=== PATIENT | female | born 1985 | race Caucasian/White ===

== ENCOUNTER 2016-09-11 07:17 | Inpatient (IN) | payer BC ==
[2016-09-11] VITALS (19 sets, daily range): BP systolic 95–142; BP diastolic 59–83
[~2016-09-11] VITALS: Ht 160 cm; Wt 80.9 kg
[~2016-09-11 07:17] MED LIST: Children's Advil PO; Percocet 5/325,Endoc PO; ~No Medications
[2016-09-11 08:39] LABS: EOSINOPHIL (%) 0 % (0-5); HEMATOCRIT 33.1 % (36.0-46.0); IMMATURE GRANULOCYTE (%) 0.5 % (0.0-0.7); IMMATURE GRANULOCYTE COUNT 0.1 K/uL; INSTRUMENT ABS NEUTROPHIL CT 11.9 K/uL; MCH 29.3 PG (29.0-34.0); MCHC 33.5 G/DL (30.0-36.0); MCV 87.3 FL (83-99); MEAN PLAT.VOLUME 10.8 uM^3 (9.5-12.4); MONOCYTE (%) 2.2 % (3-12); MONOCYTE COUNT 0.3 K/uL (0-0.8); NEUTROPHIL (%) 89.6 % (45-76); NEUTROPHIL COUNT 11.9 K/uL (1.8-6.4); PLATELET COUNT 212 K/uL (156-360); RBC DIS.WIDTH-CV 13.7 % (11.8-14.6); RBC DIS.WIDTH-SD 43.2 % (39-53); RED BLOOD COUNT 3.79 M/uL (3.80-5.20); WHITE BLOOD COUNT 13.3 K/uL (4.1-10.2)
[2016-09-11] MEDS ORDERED: PERCOCET 5/31 TABLET PO (15:10)
[2016-09-11] MEDS ORDERED: MOTRIN800 MG PO (15:10)
[2016-09-11] MEDS ORDERED: LEVO-T25 MCG PO (18:11)
[2016-09-11] MEDS ORDERED: PRENATAL TABLE1 EAC3 PO (18:12)
[2016-09-12 07:25] VITALS: BP 99/58
[2016-09-12 15:40] VITALS: BP 126/66
== END 2016-09-12 18:29 | disposition home or self-care (01) | DRG 775 ==
LOC: LDRP-OP 07:17 → 2WEST 07:18 → LDRP-OP 10-16 19:45
PROVIDERS: Midwife
PROC: 00HU33Z Insertion of Infusion Device into Spinal Canal, Percutaneous Approach (ICD-10-PCS; principal; 2016-09-11)
PROC: 3E0R3CZ (ICD-10-PCS; principal; 2016-09-11)
PROC: 10E0XZZ Delivery of Products of Conception, External Approach (ICD-10-PCS; principal; 2016-09-11)
PROC: 10907ZC Drainage of Amniotic Fluid, Therapeutic from Products of Conception, Via Natural or Artificial Opening (ICD-10-PCS; principal; 2016-09-11)
PROC: 0KQM0ZZ Repair Perineum Muscle, Open Approach (ICD-10-PCS; principal; 2016-09-11)
DX: O70.1 Second degree perineal laceration during delivery (principal); Z3A.39 39 weeks gestation of pregnancy; Z37.0 Single live birth; E03.9 Hypothyroidism, unspecified; O99.284 Endocrine, nutritional and metabolic diseases complicating childbirth
CPT/HCPCS: 85025; C1755; J3010; J7120